=== PATIENT | male | born 1955 | race Caucasian/White ===

== ENCOUNTER → 2020-08-26 20:25 | Outpatient (CLI) | payer MEDICARE, OTHER, SELFPAY | PROVIDERS: PCP Family Medicine; Referring Provider Psychiatry & Neurology Neurology; Visit Provider Psychiatry & Neurology Neurology | DX: G47.30 Sleep apnea, unspecified (principal) | CPT/HCPCS: 95810 ==

== ENCOUNTER → 2020-08-30 | Outpatient (CLI) | payer MEDICARE, OTHER, SELFPAY ==
--- NOTE | 2020-08-30 | LES_PTH ---
PATIENT: DIANE WHITE LOC: [facility] U#:[id number] AGE/SX: 65/M ROOM: RE08/30/[address]: Dr. Jared Kenny MD : 1955 BED: DIS: 08/30/2020 SPEC #: [id number] RECD: 08/30/20 19:01 STATUS: DERIK EDWARD #: [id number] REANNA: 08/30/20 00:[address]: Jared Kenny DEPT: SURGICAL PATHOLOGY RECD BY: Vasquez Mcclelland ENTERED: 08/31/20 08:24 SP TYPE: Lesion OTHR DR: Dr. Marcelino Echavarria MD Tissues: Tongue, NOS Procedures: Special Stain Group I Surgery Specimen Level IV GMS Stain (control) HEADER OPERATION: Biopsy right lateral border tongue PRE-OP DIAGNOSIS: Lesion right lateral border tongue TISSUE SUBMITTED: Right lateral border tongue MICROSCOPIC DIAGNOSIS Right lateral tongue lesion, biopsy: A piece of squamous mucosa with acanthosis, parakeratosis and chronic inflammation. Negative for malignancy. Special stain for fungi is negative for organisms; matched control is appropriate. See comment. STEVEN:kwadwo 09/01/20 COMMENT Please make reference to previous specimens ([id number]) tongue, right lateral lesion, biopsy with diagnosis of papillomatous squamous mucosa with slight acanthosis and subepithelial moderate chronic inflammatory infiltrate and ([id number]) tongue lesion, biopsy with diagnosis of benign epithelial hyperplasia, verrucoid type, no evidence of malignancy. MICROSCOPIC DESCRIPTION Slides are reviewed. GROSS DESCRIPTION Received is one container labeled with the patient's name and not further designated. The specimen consists of an irregular fragment of light delarosa excised skin measuring 0.9 x 0.2 x 0.1 cm. The specimen is inked and totally submitted in one cassette. / AM:kwadwo 08/31/20 TC:5 CPT: 22698, 97197
== END | disposition home or self-care (01) ==
LOC: LABSPEC 15:34
PROVIDERS: PCP Family Medicine; Visit Provider Otolaryngology Otolaryngology/Facial Plastic Surgery
DX: K14.8 Other diseases of tongue (principal)
CPT/HCPCS: 88305; 88312

== ENCOUNTER → 2020-09-13 12:45 | Outpatient (CLI) | payer MEDICARE, OTHER, SELFPAY ==
--- NOTE | 2020-09-13 14:35 | NEURO ---
NCS and/or EMG Patient Report Ordering Doctor: Crispin Matthews DATE OF SERVICE: 09/13/20 Indication: Intermittent numbness of the first 3 digits on both hands (right greater than left). Evaluate for median neuropathy at the wrist. Findings: Nerve conduction studies were performed in the right and left upper extremities. The right median motor study recording the abductor pollicis brevis showed a normal amplitude, prolonged distal latency and normal conduction velocity. The right ulnar motor study recording the abductor digiti minimi showed a normal amplitude, normal distal latency and normal conduction velocity. No conduction block or focal slowing was present across the elbow. The right median sensory response recording digit two showed a normal amplitude (though reduced compared to the ulnar), prolonged latency and slowed conduction velocity. The right ulnar sensory response recording digit five showed a normal amplitude, latency and conduction velocity. The right radial sensory response recording over the extensor snuff box showed a normal amplitude, latency and conduction velocity. The left median motor study recording the abductor pollicis brevis showed a normal amplitude borderline prolonged distal latency. The left median sensory response recording digit two showed a normal amplitude (symmetric with the right median and significantly lower than the right ulnar), prolonged latency and slowed conduction velocity. Needle EMG of the right upper extremity and cervical paraspinal muscles was performed. No denervation was seen in any muscle. All motor unit morphology, activation and recruitment patterns were normal. Needle EMG of the left abductor pollicis brevis was performed. No denervation was seen. Motor unit morphology, activation and recruitment patterns were normal. Impression: This is an abnormal study. There is electrophysiologic evidence of bilateral median neuropathy across the wrists (mild on the right, mild on the left). There is no active denervation of the thenar muscles to suggest ongoing axonal loss. These findings would be compatible with the clinical diagnosis of bilateral carpal tunnel syndrome. Guerrero Reyes D.O.
== END ==
PROVIDERS: PCP Family Medicine; Referring Provider Psychiatry & Neurology Neurology; Visit Provider Psychiatry & Neurology Neurology
DX: G56.03 Carpal tunnel syndrome, bilateral upper limbs (principal)
CPT/HCPCS: 95885; 95886; 95910

== ENCOUNTER → 2021-03-14 16:10 | Outpatient (CLI) | payer MEDICARE, OTHER, SELFPAY ==
--- NOTE | 2021-03-14 16:16 | MRI_ITS ---
STUDY: MR PELVIS WITH AND WITHOUT CONTRAST (PROSTATE) REASON FOR EXAM: Male, 65 years old. Elevated PSA TECHNIQUE: Standardized multiparametric prostate MRI with T1, T2, DWI/ADC sequences were obtained in 3 orthogonal planes, and dynamic contrast enhancement sequences. ml of 20ml idotarem contrast material was administered intravenously for the contrast portion of the examination. COMPARISON: None. FINDINGS: The prostate volume measures 142 mm3. The contours of the prostate gland are lobulated. There is mass effect on the bladder base. The transition zone is heterogenous. PI-RADS DWI score 3 - Focal mildly hypointense on ADC and isointense/mildly hyperintense on high b-value DWI (5-7 mm foci of the right posterior lateral gland apex, image 81 series 8). PI-RADS T2W score 2 - A mostly encapsulated nodule OR a homogeneous circumscribed nodule without encapsulation (atypical nodule) or a homogeneous mildly hypointense area between nodules.. Contrast enhancement no early or contemporaneous enhancement; or diffuse multifocal enhancement NOT corresponding to a focal finding on T2W and/or DWI or focal ehancement responding to a lesion demonstrating features of BPH onT2WI (including features of extruded BPH in the PZ). The peripheral zone is thinned but homogenous. PI-RADS DWI score 2 - Linear/wedge shaped hypointense on ADC and/or linear/wedge shaped hyperintense on high b-value DWI. PI-RADS T2W score 1 - Uniformaly hyperintense (normal). Contrast enhancement no early or contemporaneous enhancement; or diffuse multifocal enhancement NOT corresponding to a focal finding on T2W and/or DWI or focal enhancement responding to a lesion demonstrating features of BPH onT2WI (including features of extruded BPH in the PZ). The seminal vesicles demonstrate normal margins and T2 signal pattern. No mass lesion or invasion depicted. The rectoprostatic angles are normal. Urinary bladder is normal without wall thickening. The vascular structures of the are normal. The visualized hollow viscus structures are normal. Small fat-containing right inguinal hernia. No bone marrow edema or mass lesion depicted. MRI/Pelvis W/WO Contrast IMPRESSION: 1. PIRADS v2.1 2019 -- 2 - Low (clinically significant cancer is unlikely). Electronically Signed: Geraldo Gunn MD ([place]) at 7:25 EDT , Service support ,
== END ==
PROVIDERS: PCP Family Medicine; Referring Provider Nurse Practitioner Adult Health; Visit Provider Nurse Practitioner Adult Health
DX: R97.20 Elevated prostate specific antigen [PSA] (principal)
CPT/HCPCS: 72197; A9575

== ENCOUNTER → 2021-05-11 10:24 | Outpatient (CLI) | payer MEDICARE, OTHER, SELFPAY ==
[2021-03-31 15:26] VITALS: BMI 32.3
--- NOTE | 2021-05-11 10:33 | EKG12_ITS ---
Test Reason : PREOP Blood Pressure : / mmHG Vent. Rate : 063 BPM Atrial Rate : 063 BPM P-R Int : 154 ms QRS Dur : 102 ms QT Int : 422 ms P-R-T Axes : -03 -01 034 degrees QTc Int : 431 ms Normal sinus rhythm Low voltage QRS Poor R wave progression Confirmed by ANTHONY MAJANO, ESPERANZA ([id number]), book or script editor BIANCA WITT ([id number]) on 05/12/2021 1:37:56 PM Referred By: Viral Kenny Confirmed By:ESPERANZA CRUZ MD
[2021-05-11 11:23] LABS: Hematocrit 45.7 % (40-54); Hemoglobin 15.4 g/dL (13.0-16.5); Mean Corp Hgb Conc 33.7 g/dL (32-36); Mean Corpuscular Hgb 32.3 pg (27.0-32.0); Mean Corpuscular Volume 95.8 fL (80-94); Mean Platelet Vol. 9.1 fl (6.2-12.0); Platelet Count 231 K/mm3 (150-450); RBC Distribution Width CV 12.3 % (11.6-14.6); RBC Distribution Width SD 43.5 fl (35.1-43.9); Red Blood Count 4.77 M/mm3 (4.6-6.2); White Blood Count 5.6 K/mm3 (4.4-11.0)
[2021-05-11 11:57] LABS: Anion Gap 6 (5-15); BUN 14 mg/dL (7-18); BUN/Creat Ratio 12.3 RATIO (10-20); Calcium,Total 9.4 mg/dL (8.5-10.1); Chloride 107 mmol/L (98-107); Creatinine, Serum 1.14 mg/dL (0.70-1.30); EST Glomerular Filtration Rate 68 mL/min (>60); Est Glom Filt Rate - Afr Amer 82 mL/min (>60); Glucose 102 mg/dL (74-106); Potassium 4.1 mmol/L (3.5-5.1); Sodium Level 138 mmol/L (136-145)
== END ==
PROVIDERS: PCP Family Medicine; Referring Provider Otolaryngology; Visit Provider Otolaryngology
DX: Z01.818 Encounter for other preprocedural examination (principal); L98.9 Disorder of the skin and subcutaneous tissue, unspecified
CPT/HCPCS: 36415; 80048; 85027; 93005

== ENCOUNTER → 2021-05-16 | Outpatient (CLI) | payer MEDICARE, OTHER, SELFPAY ==
[2021-03-31 15:26] VITALS: BMI 32.3
--- NOTE | 2021-05-16 | TOBX_PTH ---
PATIENT: DIANE WHITE LOC: [facility] U#:[id number] AGE/SX: 66/M ROOM: RE05/16/[address]: Dr. Viral Kenny MD : 1955 BED: DIS: 05/16/2021 SPEC #: [id number] RECD: 05/16/21 15:13 STATUS: DERIK LEON #: [id number] REANNA: 05/16/21 00:[address]: Viral Kenny DEPT: SURGICAL PATHOLOGY RECD BY: Krissy Odell ENTERED: 05/17/21 13:11 SP TYPE: TONGUE BX OTHR DR: Dr. 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 See cancer summary in the comment section. SJ:kwadwo 05/18/2021 COMMENT [facility] SUMMARY Procedure ? excision Tumor focality ? unifocal Tumor site ? tongue Tumor laterality ? right Tumor size ? 2.5 x 1.5 x 0.5 cm Histologic type ? verrucous squamous cell carcinoma Histologic grade ? grade 1, well differentiated Tumor depth of invasion ? at least 0.1 mm Lymphvascular invasion ? not identified Perineural invasion ? not identified Margins ? margins are uninvolved by invasive carcinoma. The tumor is <1 mm away from the peripheral margins and 1 mm away from the deep margin. The tumor is present close to the skeletal muscle tissue; however, no invasion into the skeletal muscle tissue is noted. Regional lymph nodes ? not submitted or found Distant metastasis ? not applicable Additional pathologic findings ? none identified Special studies - Immunohistochemistry ([id number]) for surrogate HPV marker (p16) will be performed and results will be reported separately. PATHOLOGIC STAGE: pT3 pNx pMx The above summary is in compliance with [employer] [place] (CAP) Cancer Protocols Checklist and [place] Joint Committee on Cancer (AJCC), Staging Manual, 8th Ed. Case has been reviewed in consultation with Dr. Brumfield who concurs with the above diagnosis. IDC:AM MICROSCOPIC DESCRIPTION Slides are reviewed. GROSS DESCRIPTION Received in fixative is one container labeled with the patient's name and designated right tongue lesion. The specimen consists of a piece of delarosa-white mucosal tissue measuring 2.5 x 1.5 x 0.5 cm. The specimen is inked, serially sectioned and submitted entirely in two cassettes. / SJ:rg 05/17/21 TC:0 [facility]: [id number] ADDENDUM ADDENDUM ADDENDUM ADDENDUM ADDENDUM ADDENDUM ADDENDUM ADDENDUM ADDENDUM ADDENDUM ADDENDUM 05/26/2022 11:06 ADDENDUM 05/26/2022 11:06 ADDENDUM 05/26/2022 11:06 ADDENDUM 05/26/2022 11:06 ADDENDUM 05/26/2022 11:06 The case was examined at [facility] (#[id number]) and the following diagnosis was rendered. The following report was received on 05/26/2022. Oral tongue, right, lesion, excision: -Well differentiated keratinizing squamous cell carcinoma, conventional type with verrucous features (see not in EMR). - Surgical margins involved by tumor Please see complete above mentioned consultation report in EMR
--- NOTE | 2021-05-16 | IMM_PTH ---
PATIENT: DIANE WHITE LOC: [facility] U#:[id number] AGE/SX: 66/M ROOM: RE05/16/[address]: Dr. Viral Kenny MD : 1955 BED: DIS: 05/16/2021 SPEC #: [id number] RECD: 05/18/21 15:18 STATUS: DERIK RETiomthy #: [id number] REANNA: 05/16/21 00:[address]: Viral Kenny DEPT: IMMUNOHISTOCHEMISTRY RECD BY: Abena Story ENTERED: 05/18/21 15:19 SP TYPE: IMMUNO OTHR DR: Dr. Marcelino Echavarria MD Tissues: Tongue, NOS Procedures: p16 (initial) PHYSICIAN & INSTITUTION [place] [id number] SPECIMEN INFORMATION: Tissue Source: Right tongue lesion Clinical Info: Right tongue lesion Specimen Number: [id number] #2 CPT code: 16138 METHODOLOGY: Deparaffinized sections of prefer/formalin-fixed tissue or PAP/DQ stained slides are incubated with monoclonal/polyclonal antibodies/oligonucleotide probes. Localization is made via biotin free immunoperoxidase method. Appropriate controls are performed and reacted as expected. Results on target cell population are indicated in the following table: RESULTS: ANTIBODY / CLONE RESULT Block 2 P16 (E6H4) negative These tests were developed and their performance characteristics determined by [facility]. They may not have been cleared or approved by the U.S. Food and Drug Administration. The FDA has determined that such clearance or approval is not necessary. The above immunohistochemical/dualISH markers are ordered and reviewed by the Pathologist. INTERPRETATION: Right tongue lesion, excision: Invasive verrucous squamous cell carcinoma. STEVEN:kwadwo 05/19/2021
== END | disposition home or self-care (01) ==
LOC: LABSPEC 15:43
PROVIDERS: PCP Family Medicine; Referring Provider Otolaryngology; Visit Provider Otolaryngology
DX: L98.9 Disorder of the skin and subcutaneous tissue, unspecified (principal)
CPT/HCPCS: 88305; 88342

== ENCOUNTER → 2024-03-19 | Outpatient (CLI) | payer MEDICARE, OTHER, SELFPAY ==
--- NOTE | 2024-03-19 14:00 | NEURO ---
NCS and/or EMG Patient Report Ordering Doctor: Crispin Matthews DATE OF SERVICE: 03/19/24 Silvino presents with bilateral leg pain pain which she reports is worse at night. He reports a vibrating sensation in both lower limbs. Electrodiagnostic findings: Peroneal motor nerve demonstrates normal distal latency, amplitude and conduction velocity bilaterally. Tibial motor responses are within normal limits bilaterally. Normal peroneal and tibial F?waves. H- reflex is within normal limits. Sensory responses are normal. Needle EMG testing was performed the lower limbs. All muscles tested showed no evidence of denervation with normal motor unit action potentials. Electrodiagnostic impression: This is a normal electrodiagnostic study of the lower limbs. There is no electrodiagnostic evidence for peripheral neuropathy or lumbosacral radiculopathy. Multi Select Codes Neurology Neurology Interp Codes: 65894-80 Musc test done w/n test comp (interp) (2) and 84274-56 Nrv cndj test 9-10 studies (interp)
== END | disposition home or self-care (01) ==
LOC: PSN 12:14
PROVIDERS: PCP Family Medicine; Referring Provider Psychiatry & Neurology Neurology; Visit Provider Psychiatry & Neurology Neurology
DX: M54.50 Low back pain, unspecified (principal); M79.604 Pain in right leg; M79.605 Pain in left leg
CPT/HCPCS: 95886; 95911

== ENCOUNTER → 2024-06-12 | Outpatient (CLI) | payer MEDICARE, OTHER, SELFPAY ==
--- NOTE | 2024-06-12 15:30 | RAD_ITS ---
INDICATION: low back pain; bilateral lumbar radiculopathy EXAMINATION/TECHNIQUE: X-RAY - XR Spine Lumbar Bending Views Only 2 or 3 Views COMPARISON: No relevant prior comparison study available FINDINGS: VERTEBRAE: Preserved vertebral body height. No fracture. No spondylolisthesis. Preservation of the normal lumbar lordosis. Severe multilevel facet arthropathy. DISCS: Severe multilevel degenerative disc disease and spondylosis. INCLUDED ABDOMEN: Included bowel gas pattern is non-obstructive. RAD/L/S Spine Bending Flex/Ext IMPRESSION: No evidence of lumbar spinal fracture or spondylolisthesis. Severe multilevel degenerative disc disease and spondylosis. Electronically Signed: Guerrero Hough MD at 23:53 EDT ,
[2024-06-12 19:10] LABS: Vitamin B12 1220 pg/mL (211-911)
[2024-06-18 12:10] LABS: Free Lambda Light Chains 20.6 mg/L (5.7-26.3); Vitamin B1, Thiamine 157.2 nmol/L (66.5-200.0)
== END | disposition home or self-care (01) ==
LOC: MTLAB 15:23
PROVIDERS: PCP Family Medicine; Referring Provider Psychiatry & Neurology Neurology; Visit Provider Psychiatry & Neurology Neurology
DX: G62.9 Polyneuropathy, unspecified (principal); E78.5 Hyperlipidemia, unspecified; M79.604 Pain in right leg; M79.605 Pain in left leg; M54.50 Low back pain, unspecified; G89.29 Other chronic pain
CPT/HCPCS: 36415; 72120; 82607; 82746; 83883; 84425; 84443

== ENCOUNTER → 2024-06-20 | Outpatient (CLI) | payer MEDICARE, OTHER, SELFPAY ==
--- NOTE | 2024-06-20 14:13 | MRI_ITS ---
EXAM: MR LUMBAR SPINE WITHOUT INTRAVENOUS CONTRAST CLINICAL INDICATION: back pain TECHNIQUE: Multiplanar and multisequence MR images of the lumbar spine without intravenous contrast. COMPARISON: No relevant prior studies available. FINDINGS: VERTEBRAE: The bones are heterogeneous with mild endplate changes. No dominant destructive bone masses. Heterogeneous but symmetric appearance of partially included sacrum and iliac bones. SPINAL CORD: Unremarkable. Normal position and signal intensity of the conus medullaris. At T12-L1. Minimal canal narrowing to 1.3 cm AP at T12-L1. SOFT TISSUES: Unremarkable. DISCS/SPINAL CANAL/NEURAL FORAMINA: L1-L2: Unremarkable. Normal disc height and morphology. Normal spinal canal and lateral recesses. Normal neuroforamina. L2-L3: Mild disc space narrowing, decreased T2 signal intensity in the disc, anterior osteophyte-disc complex, moderate annular disc bulge. Mild bilateral neural foraminal stenosis due to combined annular disc bulge and mild facet joint hypertrophic changes. Mildly narrowed spinal canal to 8 mm AP and 1.8 cm transverse with contribution from facet joint hypertrophy and ligamentum flavum hypertrophy. L3-L4: Mild-moderate decreased disc height, moderate annular disc bulge, ligamentum flavum hypertrophy and facet joint hypertrophic change. Spinal canal stenosis, mild, 9 mm AP diameter by 1.2 cm transverse in the midline. Mild narrowing of the proximal neural foramen. L4-L5: Moderate-marked disc space narrowing, decreased T2 signal intensity, marked annular disc bulge. Proximal neural foraminal stenosis, mildly greater on the right. AP diameter of the midline canal 1.2 cm but narrowed transverse diameter and facet joint hypertrophic change. L5-S1: Mild decreased disc height and decreased T2 signal intensity. Mild annular disc bulge and prominent right lateral and anterolateral spondylosis and protruding disc. AP diameter of the midline canal 1.1 cm. Moderate-marked right and mild left neural foraminal stenosis. MRI/Spine Lumbar (Routine) IMPRESSION: Multilevel degenerative changes. L2-3 and L3-4 mild spinal canal stenosis, multifactorial. Multilevel neural foraminal stenosis. Mildly heterogeneous bone density without dominant bone lesion. Electronically Signed: Melba Castaneda MD at 20:59 EDT Reading Location ID and State: [id number] / CAT Tel , Service support ,
[2024-06-23 14:08] LABS: Albumin 3.8 g/dL (2.9-4.4); Alpha-1-Globulins 0.2 g/dL (0.0-0.4); Gamma Globulin 1.2 g/dL (0.4-1.8); Immunoglobulin A 294 mg/dL (61-437); Immunoglobulin G 1088 mg/dL (603-1613); Immunoglobulin M 48 mg/dL (15-143); PROEL- TOTAL PROTEIN 7.2 g/dL (6.0-8.5)
== END | disposition home or self-care (01) ==
LOC: MRI 14:05
PROVIDERS: PCP Family Medicine; Referring Provider Psychiatry & Neurology Neurology; Visit Provider Psychiatry & Neurology Neurology
DX: M54.50 Low back pain, unspecified (principal); G89.29 Other chronic pain; M54.16 Radiculopathy, lumbar region
CPT/HCPCS: 36415; 72148; 82784; 84165; 86334

== ENCOUNTER 2024-07-08 10:00 | Outpatient (CLI) | payer MEDICARE, OTHER, SELFPAY ==
--- NOTE | 2024-07-08 09:45 | US_ITS ---
STUDY: ABDOMINAL ULTRASOUND - RIGHT UPPER QUADRANT REASON FOR VISIT: Male, 69 years old ABN LABS TECHNIQUE: Ultrasound evaluation of the right upper quadrant was performed with real-time and static ansari-scale imaging. TECHNICAL QUALITY: Adequate. COMPARISON: None. FINDINGS: Liver: The liver measures 22.1 cm. There is increased echogenicity consistent with fatty infiltration. The bile ducts are within normal limits. There is hepatic color flow. The direction of portal flow is hepatopetal. There is no demonstrated mass lesion. Gallbladder: Normal distended gallbladder. The gallbladder wall measures 2 mm. There is a negative sonographic Oleary''s sign. There is no pericholecystic fluid. There are no gallstones. Common Bile Duct (C.B.D.): The common bile duct measures 6 mm. Pancreas: Normal size of the head, body and tail of the pancreas. There is normal echogenicity of the pancreas. There is no demonstrated pancreatic mass or cyst. Right Kidney: Normal size of the right kidney. The right kidney measures 11.9 cm. Normal renal cortex. The right cortex measures 1.2 cm. There is no demonstrated renal mass or cyst. There is no right hydronephrosis. US/Abdomen Limited IMPRESSION: Fatty infiltration of the liver. Electronically Signed: Abraham Mary MD at 9:04 EDT ,
== END 2024-07-08 23:59 | disposition home or self-care (01) ==
PROVIDERS: PCP Family Medicine; Referring Provider Family Medicine; Visit Provider Family Medicine
DX: R74.8 Abnormal levels of other serum enzymes (principal); E78.1 Pure hyperglyceridemia
CPT/HCPCS: 76705

== ENCOUNTER → 2024-07-10 | Outpatient (CLI) | payer MEDICARE, OTHER, SELFPAY | END | disposition home or self-care (01) | LOC: LABSPEC 15:42 | PROVIDERS: PCP Family Medicine; Referring Provider Psychiatry & Neurology Neurology; Visit Provider Psychiatry & Neurology Neurology | DX: G62.9 Polyneuropathy, unspecified (principal) | CPT/HCPCS: 86335 ==

== ENCOUNTER → 2024-09-10 | Outpatient (CLI) | payer MEDICARE, OTHER, SELFPAY ==
--- NOTE | 2024-09-10 15:56 | RAD_ITS ---
HISTORY: PAIN. TECHNIQUE: XR Knee 3 Views. COMPARISON: None. FINDINGS: BONES : No acute fracture identified. Mineralization unremarkable. JOINTS: No dislocation. Mild degenerative change with small osteophytes. SOFT TISSUES: Vascular calcification present. RAD/Knee 3 Views IMPRESSION: No acute fracture or dislocation identified in the left knee. Electronically Signed: Aria Hensley MD at 9:07 EST ,
--- NOTE | 2024-09-10 15:56 | RAD_ITS ---
HISTORY: PHYSICIAN ORDER. TECHNIQUE: XR Knee 3 Views. COMPARISON: None. FINDINGS: BONES : No acute fracture identified. Spur of the fibular neck spur of the fibular neck. JOINTS: No dislocation. Mild degenerative change. SOFT TISSUES: Vascular calcification present. RAD/Knee 3 Views IMPRESSION: No acute fracture or dislocation identified in the right knee. Electronically Signed: Aria Hensley MD at 9:06 EST ,
== END | disposition home or self-care (01) ==
LOC: MTRAD 15:52
PROVIDERS: PCP Family Medicine; Referring Provider Psychiatry & Neurology Neurology; Visit Provider Psychiatry & Neurology Neurology
DX: M25.561 Pain in right knee (principal); M25.562 Pain in left knee
CPT/HCPCS: 73562

== ENCOUNTER → 2025-03-11 | Outpatient (CLI) | payer MEDICARE, OTHER, SELFPAY ==
--- NOTE | 2025-03-11 14:14 | CT_ITS ---
PROCEDURE: ABDOMEN W/WO IV CONTRAST 03/11/2025 REASON FOR EXAM: JAUNDICE TECHNIQUE: Abdomen CT with intravenous contrast. Multiplanar and multisequence images were obtained. One or more dose reduction techniques were used (e.g., Automated exposure control, adjustment of the mA and/or kV according to patient size, use of iterative reconstruction technique. PATIENT PREPARATION: Per protocol CONTRAST: 98 mL Isovue-300 RADIATION DOSE SUMMARY: CTDlvol: 23.9 mGy DLP: 2279 mGycm COMPARISON: Abdominal ultrasound on 07/08/2024 FINDINGS: Lung bases: Clear. Multivessel coronary calcifications Liver: Enlarged with diffuse fatty infiltration. No significant intrahepatic biliary ductal dilatation. Gallbladder: Unremarkable. Normal caliber common bile duct. Spleen: Mildly enlarged measuring 14.6 cm longitudinally. Pancreas: Normal size without evidence of mass surrounding inflammation or ductal dilation. Adrenals: Unremarkable Kidneys: No hydronephrosis or stone. Bowel: There is a 3.2 cm diverticulum at the junction of the descending and transverse duodenum. Colonic diverticulosis. Lymph nodes: No significant lymphadenopathy. Vasculature: Mild aortic atherosclerosis. Bones: Degenerative changes of the spine. Abdominal wall: Unremarkable. CT/Abdomen W/WO IV Contrast IMPRESSION: 1. No intrahepatic or extrahepatic biliary ductal dilatation. 2. Hepatic steatosis and hepatomegaly. Mild splenomegaly. 3. Duodenal diverticulum measuring 3.2 cm. Reading Location: [id number]
== END | disposition home or self-care (01) ==
LOC: CT 14:12
PROVIDERS: PCP Family Medicine; Referring Provider Family Medicine; Visit Provider Family Medicine
DX: R17 Unspecified jaundice (principal)
CPT/HCPCS: 74170; Q9967

== ENCOUNTER → 2025-03-17 | Outpatient (CLI) | payer MEDICARE, OTHER, SELFPAY ==
[2025-03-17 20:26] LABS: ALB/GLOB Ratio 0.9 RATIO (0.9-2.4); AST(SGOT) 174 U/L (<=37); Alanine Aminotransfer ALT/SGPT 238 U/L (<=46); Albumin, Serum 3.7 g/dL (3.4-4.8); Alkaline Phosphatase 592 U/L (40-129); Anion Gap 14 (5-15); BUN 16 mg/dL (4-19); BUN/Creat Ratio 14.9 RATIO (10-20); Calcium,Total 9.4 mg/dL (7.6-11.0); Carbon Dioxide 20.3 mmol/L (21.0-32.0); Chloride 100 mmol/L (98-108); Creatinine, Serum 1.08 mg/dL (0.70-1.20); EST Glomerular Filtration Rate 73 (>60); Globulin 4.3 g/dL (2.2-4.2); Glucose 94 mg/dL (70-99); Potassium 4.3 mmol/L (3.3-5.1); Sodium Level 134 mmol/L (133-145); Total Bilirubin 2.65 mg/dL (0.00-1.30)
[2025-03-19 18:08] LABS: Anti-Smooth Muscle ABS 11 Units (0-19); EBV Acute VCA IgM < 36.0 U/mL (0.0-35.9); HEPATITIS B SURFACE AG Negative (Negative); Hep C Antibodies Non Reactive (Non Reactive); Hepatitis A IgM Antibody Negative (Negative); Hepatitis B Core AB IgM Negative (Negative)
== END | disposition home or self-care (01) ==
LOC: MTLAB 16:03
PROVIDERS: PCP Family Medicine; Referring Provider Internal Medicine Gastroenterology; Visit Provider Internal Medicine Gastroenterology
DX: K75.9 Inflammatory liver disease, unspecified (principal)
CPT/HCPCS: 36415; 80053; 80074; 83516; 86665

== ENCOUNTER → 2025-03-24 | Outpatient (CLI) | payer MEDICARE, OTHER, SELFPAY ==
--- NOTE | 2025-03-24 08:45 | US_ITS ---
PROCEDURE: ABD LIMITED W/ ELASTOGRAPHY REASON FOR EXAM: FATTY LIVER COMPARISON: None. TECHNIQUE: Right upper quadrant abdominal ultrasound. Chelly ElastQ Imaging shear wave elastography for non-invasive assessment of liver tissue stiffness. Chelly EPIQ Elite. FINDINGS: LIVER: Size: Enlarged (hepatomegaly) Length: 19.3 cm Echotexture: Diffusely echogenic suggesting fatty infiltration Contour: Normal Lesions: None identified Elastography: EQI Med: 8.9 kPa EQI Med Seth: 1.7 m/s IQR/Med: 9 %* GALLBLADDER: Normal COMMON BILE DUCT: Normal measuring 6.9 mm . PANCREAS: Normal Visualized portions of the right kidney are unremarkable. No right upper quadrant ascites. US/ABD Limited w/ Elastography IMPRESSION: Moderate hepatic fibrosis. Hepatomegaly and diffuse fatty infiltration of the liver. Reference Values: SRU <1.37 m/s (5.7kPa): No to mild fibrosis 1.37 m/s - 2.2 m/s: Moderate to severe fibrosis >2.2 m/s (15kPa): Significant fibrosis / cirrhosis METAVIR Score F2 or higher: 1.34 m/s (5.7kPa) F3 or higher: 1.55 m/s (7.3kPa) F4: 1.80 m/s (10kPa) * If the IQR/Med is >30%, the variance in the measurements is a large and the a ccuracy of the measurement may be in question. Reading Location: [place] [id number]
== END | disposition home or self-care (01) ==
PROVIDERS: PCP Family Medicine; Referring Provider Internal Medicine Gastroenterology; Visit Provider Internal Medicine Gastroenterology
DX: K76.0 Fatty (change of) liver, not elsewhere classified (principal)
CPT/HCPCS: 76705; 76981

== ENCOUNTER → 2025-04-20 | Outpatient (CLI) | payer MEDICARE, OTHER, SELFPAY ==
[2025-04-20 19:14] LABS: AST(SGOT) 35 U/L (<=37); Alanine Aminotransfer ALT/SGPT 36 U/L (<=46); Albumin, Serum 4.1 g/dL (3.4-4.8); Alkaline Phosphatase 99 U/L (40-129); Anion Gap 14 (5-15); BUN 13 mg/dL (4-19); BUN/Creat Ratio 10.7 RATIO (10-20); Bilirubin, Direct 0.52 mg/dL (0.00-0.30); Calcium,Total 9.4 mg/dL (7.6-11.0); Carbon Dioxide 19.5 mmol/L (21.0-32.0); Chloride 105 mmol/L (98-108); Globulin 3.9 g/dL (2.2-4.2); Glucose 89 mg/dL (70-99); Potassium 3.7 mmol/L (3.3-5.1)
== END | disposition home or self-care (01) ==
LOC: MTLAB 16:14
PROVIDERS: PCP Family Medicine; Referring Provider Internal Medicine Gastroenterology; Visit Provider Internal Medicine Gastroenterology
DX: K75.9 Inflammatory liver disease, unspecified (principal)
CPT/HCPCS: 36415; 80053; 82248